=== PATIENT | male | born 1985 | race Caucasian/White ===

== ENCOUNTER 2024-03-17 03:04 | Emergency (ER) | payer OTHER ==
[~2024-03-17] VITALS: Ht 182.9 cm; Wt 103.0 kg
[2024-03-17 03:16] VITALS: BP 125/87; PULSE 110; RESP 18; TEMP 98.2; O2SAT 98
[2024-03-17] MEDS ORDERED: AMOX1TAB16 MT (03:34)
== END 2024-03-17 03:56 | disposition home or self-care (01) ==
LOC: ER 03:04
DX: S41.052A Open bite of left shoulder, initial encounter (principal); W50.3XXA Accidental bite by another person, initial encounter; Y93.89 Activity, other specified; Y92.89 Other specified places as the place of occurrence of the external cause; Y99.8 Other external cause status
CPT/HCPCS: 99283